=== PATIENT | male | born 1980 | race Caucasian/White ===

== ENCOUNTER 2017-02-26 09:27 | Emergency (ER) | payer BC ==
--- NOTE | 2017-02-26 09:41 | EDM.PDOC ---
ED HPI GENERAL MEDICAL PROBLEM - General Chief Complaint: ENT Problem Stated Complaint: FACE SWELLING Time Seen by Provider: 02/26/17 09:38 Source of Information: Reports: Patient - History of Present Illness INITIAL COMMENTS - FREE TEXT/NARRATIVE: HISTORY AND PHYSICAL: History of present illness: [] [facility] has been treated for a dental abscess over the last week with Augmentin Significant left-sided swelling no fever nausea vomiting chills sweats no drooling maintains his own airway Review of systems: As per history of present illness and below otherwise all systems reviewed and negative. Past medical history: As per history of present illness and as reviewed below otherwise noncontributory. Surgical history: As per history of present illness and as reviewed below otherwise noncontributory. Social history: No reported history of drug or alcohol abuse. Family history: As per history of present illness and as reviewed below otherwise noncontributory. Physical exam: HEENT: Atraumatic, normocephalic, pupils reactive, negative for conjunctival pallor or scleral icterus, mucous membranes moist, throat clear, neck supple, nontender, trachea midline. Lungs: Clear to auscultation, breath sounds equal bilaterally, chest nontender. Heart: S1S2, regular, negative for clicks, rubs, or JVD. Abdomen: Soft, nondistended, nontender. Negative for masses or hepatosplenomegaly. Negative for costovertebral tenderness. Pelvis: Stable nontender. Genitourinary: Deferred. Rectal: Deferred. Extremities: Atraumatic, negative for cords or calf pain. Neurovascular unremarkable. Neuro: Awake, alert, oriented. Cranial nerves II through XII unremarkable. Cerebellum unremarkable. Motor and sensory unremarkable throughout. Exam nonfocal. Diagnostics: [] CT soft tissue neck Lab as below Therapeutics: [] Liter normal saline bolus 10 units regular insulin Clindamycin 300 mg IV Decadron 8 mg IV Patient discussed with Dr. ROBY mckeon, oral surgeon will see the patient at 3 PM in his office for continued management Impression: [] Dental abscess/submandibular abscess Hyperglycemia Definitive disposition and diagnosis as appropriate pending reevaluation and review of above. Throat Pain Score (Numeric/FACES): 9 - Related Data Allergies Allergy/AdvReac Type Severity Reaction Status Date / Time No Known Allergies Allergy Verified 02/26/17 09:41 Home Meds: Home Meds Amoxicillin/Clavulanate K [Augmentin 875 MG/125 MG] 0 tab PO ASDIRECTED [History] Another Antibiotic 0 mg PO ASDIRECTED 02/26/17 [History] Social & Family History - Tobacco Use Smoking Status *Q: Current Every Day Smoker Years of Tobacco use: 20 - Alcohol Use Days Per Week of Alcohol Use: 1 Number of Drinks Per Day: 2 Total Drinks Per Week: 2 - Recreational Drug Use Recreational Drug Use: No ED ROS GENERAL - Review of Systems Review Of Systems: ROS reveals no pertinent complaints other than HPI. ED EXAM, GENERAL - Physical Exam Exam: See Below Course - Vital Signs Last Recorded V/S: Last Vital Signs Temp 36.7 C 02/26/17 09:42 Pulse 122 H 02/26/17 10:50 Resp 18 02/26/17 10:50 BP 144/85 H 02/26/17 10:50 Pulse Ox 98 02/26/17 10:50 - Orders/Labs/Meds Orders: Active Orders 24 hr Category Date Time Status EKG Documentation Completion [RC] STAT Care 02/26/17 11:18 Active Sodium Chloride 0.9% [Normal Saline] 1,000 ml Med 02/26/17 09:45 Active IV STAT Medication Orders Sodium Chloride (Normal Saline) 1,000 mls @ 125 mls/hr IV STAT SELVIN Last Admin: 02/26/17 09:46 Dose: 125 mls/hr Labs: Laboratory Tests 02/26/17 02/26/17 02/26/17 Range/Units 09:43 09:43 11:14 WBC 27.24 H (4.0-11.0) K/uL RBC 5.00 (4.50-5.90) M/uL Hgb 16.2 (13.0-17.0) g/dL Hct 47.3 (38.0-50.0) % MCV 94.6 (80.0-98.0) fL MCH 32.4 H (27.0-32.0) pg MCHC 34.2 (31.0-37.0) g/dL RDW Std Deviation 43.0 (28.0-62.0) fl RDW Coeff of Oliverio 13 (11.0-15.0) % Plt Count 243 (150-400) K/uL MPV 10.70 (7.40-12.00) fL Add Manual Diff YES Neutrophils % (Manual) 78 (48.0-80.0) % Band Neutrophils % 17 % Lymphocytes % (Manual) 3 L (16.0-40.0) % Monocytes % (Manual) 2 (0.0-15.0) % Nucleated RBC % 0.0 /100WBC Absolute Seg Neuts 21.2 Band Neutrophils # 4.6 Lymphocytes # (Manual) 0.8 Monocytes # (Manual) 0.5 Nucleated RBCs # 0 K/uL Sodium 134 L (136-146) mmol/L Potassium 5.0 (3.5-5.1) mmol/L Chloride 101 (98-110) mmol/L Carbon Dioxide 10 L (21-31) mmol/L BUN 15 (6.0-23.0) mg/dL Creatinine 1.3 (0.6-1.5) mg/dL Est Cr Clr Drug Dosing 78.56 mL/min Estimated GFR (MDRD) > 60.0 ml/min Glucose 405 H (60-110) mg/dL POC Glucose 308 H (60-110) mg/dL Calcium 10.1 (8.8-10.8) mg/dL Total Bilirubin 0.6 (0.1-1.5) mg/dL AST 11 (5-40) IU/L ALT 17 (8-54) IU/L Alkaline Phosphatase 116 (40-150) Total Protein 8.2 H (6.0-8.0) g/dL Albumin 4.4 (3.5-5.0) g/dL Globulin 3.8 H (2.0-3.5) g/dL Albumin/Globulin Ratio 1.2 L (1.3-2.8) Meds: Medications Generic Name Dose Route Start Last Admin Trade Name Freq PRN Reason Stop Dose Admin Sodium Chloride 1,000 mls @ 125 mls/hr 02/26/17 09:45 02/26/17 09:46 Normal Saline IV 125 mls/hr STAT SELVIN Administration Discontinued Medications Generic Name Dose Route Start Last Admin Trade Name Freq PRN Reason Stop Dose Admin Dexamethasone 8 mg 02/26/17 11:50 Dexamethasone IVPUSH 02/26/17 11:51 ONETIME ONE Clindamycin Phosphate 300 mg/ 52 mls @ 100 mls/hr 02/26/17 11:16 02/26/17 11: 32 Sodium Chloride IV 05/24/17 11:47 100 mls/hr ONETIME ONE Administration Insulin Human Regular 5 unit 02/26/17 10:38 02/26/17 10:44 Novolin R IVPUSH 02/26/17 10:39 5 units ONETIME ONE Administration Protocol Insulin Human Regular 5 unit 02/26/17 11:16 02/26/17 11:23 Novolin R IVPUSH 02/26/17 11:17 5 units ONETIME ONE Administration Protocol Iopamidol 80 ml 02/26/17 10:06 02/26/17 10:07 Isovue Multipack-370 (76%) IVPUSH 02/26/17 10:07 80 ml ONETIME STA Administration Ondansetron HCl 8 mg 02/26/17 09:59 02/26/17 10:40 Zofran IVPUSH 02/26/17 10:00 8 mg ONETIME ONE Administration Departure - Departure Time of Disposition: 12:00 Disposition: DC/Tfer to Other 70 Condition: fair Clinical Impression: Dental abscess - Discharge Information Forms: ED Department Discharge Additional Instructions: Followup with Dr. Aleksandr Barrios maxillofacial and oral surgeon [facility] [facility] [place] [address] Phone number [phone] The case has been discussed with the surgeon he will see you at 3 PM at his office - My Orders Last 24 Hours: My Active Orders 02/26/17 09:45 Sodium Chloride 0.9% [Normal Saline] 1,000 ml IV STAT 02/26/17 11:18 EKG Documentation Completion [RC] STAT - Assessment/Plan Last 24 Hours: My Active Orders 02/26/17 09:45 Sodium Chloride 0.9% [Normal Saline] 1,000 ml IV STAT 02/26/17 11:18 EKG Documentation Completion [RC] STAT
[2017-02-26] MEDS ORDERED: Sodium Chloride 0.9% 1,000 ML IV SCH (09:45)
[2017-02-26] MEDS ORDERED: Ondansetron 4 MG/2 ML SDV IVPUSH ONE (09:59)
[2017-02-26] MEDS ORDERED: Iopamidol 755 MG/ML 500 ML Multipack Bottle IVPUSH STA (10:06)
[2017-02-26 10:23] LABS: CHLORIDE,CL 101 mmol/L (98-110); SODIUM,NA 134 mmol/L (136-146)
[2017-02-26] MEDS ORDERED: Insulin Regular, Human 100 Units/ML 10 ML Vial IVPUSH ONE ×3 (10:38→12:18)
--- NOTE | 2017-02-26 11:42 | CT ---
EXAMINATION: CT soft tissue neck with contrast HISTORY: Pain COMPARISON: None TECHNIQUE: Axial CT images obtained through the neck following the administration of 80 mL of Isovue -370. Coronal and sagittal reconstructions obtained. FINDINGS: There is a 3.8 x 2.2 cm submandibular abscess noted on the left. This likely originates fr om a periapical abscess involving the left anterior mandibular molar. There is cortical breakthrough at this region. There is mass effect on the underlying oropharynx and hypopharynx. There are a few mildly prominent level 2 lymph nodes noted, likely reactive. The oropharyngeal and nasopharyngeal mu cosal structures appear symmetric. There is a trace edema within the retropharyngeal soft tissues. T he parotid and submandibular glands are symmetric. The thyroid appears normal. Soft tissue stranding extends along the left aspect of the neck. No significant subcutaneous air outside of the abscess. Mucosal thickening is noted within the ethmoid air cells. The mastoid air cells are clear. The visua lized intracranial compartments appear normal. The lung apices are clear. IMPRESSION: 1. There is a 3.8 x 2.2 cm submandibular abscess likely extension from a left mandibular molar peria pical lucency with cortical breakthrough. 2. Mass effect on the left aspect of the oropharynx is noted. 3. Reactive cervical chain lymph nodes. 4. Trace retropharyngeal edema.
[2017-02-26] MEDS ORDERED: Dexamethasone 4 MG/ML SDV IVPUSH ONE (11:50)
[2017-02-26] MEDS ORDERED: Dexamethasone 10 MG/ML SDV ONE (11:56)
[2017-02-26] MEDS ORDERED: diphenhydrAMINE 50 MG/ML SDV IVPUSH ONE (12:18)
[2017-02-26] MEDS ORDERED: Morphine 10 MG/ML Syringe IV ONE (12:18)
[2017-02-26 13:44] VITALS: BP 135/80
== END 2017-02-26 13:40 | disposition other institution (70) ==
LOC: MW.ED 09:27
DX: K04.7 Periapical abscess without sinus (principal); Z79.899 Other long term (current) drug therapy; F17.200 Nicotine dependence, unspecified, uncomplicated
CPT/HCPCS: 70491; 80053; 82962; 85025; 93005; 96361; 96365; 96375; 96376; 99284; J1100; J1200; J2270; J2405; J7040; J7050; Q9967; J1815-GY

== ENCOUNTER 2017-02-27 15:51 | Inpatient (IN) | payer BC, OTHER ==
[2017-02-27] MEDS ORDERED: Ketorolac 30 MG/ML SDV IVPUSH ONE (15:56)
[2017-02-27] MEDS ORDERED: Sodium Chloride 0.9% 1,000 ML IV ONE ×2 (15:56→17:52)
[2017-02-27] MEDS ORDERED: Ondansetron 4 MG/2 ML SDV IVPUSH ONE (15:56)
[2017-02-27] MEDS ORDERED: cefTRIAXone 2 GM in Premix Bag 1 BAG IV ONE (16:16)
--- NOTE | 2017-02-27 16:16 | EDM.PDOC ---
ED HPI GENERAL MEDICAL PROBLEM - General Chief Complaint: ENT Problem Stated Complaint: INFECTION Time Seen by Provider: 02/27/17 16:00 Source of Information: Reports: Patient History Limitations: Reports: No Limitations - History of Present Illness INITIAL COMMENTS - FREE TEXT/NARRATIVE: History of present illness: [36 year old male presenting to the ED secondary to referral from maxofacial surgeon. Patient has had 2 molars removed and significant amounts of infection ( approximately 30-40 cc) per surgeon.] Review of systems: As per history of present illness and below otherwise all systems reviewed and negative. Past medical history: As per history of present illness and as reviewed below otherwise noncontributory. Surgical history: As per history of present illness and as reviewed below otherwise noncontributory. Social history: No reported history of drug or alcohol abuse. Family history: As per history of present illness and as reviewed below otherwise noncontributory. Physical exam: HEENT: Atraumatic, normocephalic, pupils reactive, negative for conjunctival pallor or scleral icterus, mucous membranes moist, internal oral swelling noted as well as some mild amount of swelling and tenderness to the lower jaw and neck region, trachea midline. Patient is able to verbalize, is not drooling , or unable to breathe without difficulty. Lungs: Clear to auscultation, breath sounds equal bilaterally, chest nontender. Heart: S1S2, regular, negative for clicks, rubs, or JVD. Abdomen: Soft, nondistended, nontender. Negative for masses or hepatosplenomegaly. Negative for costovertebral tenderness. Pelvis: Stable nontender. Genitourinary: Deferred. Rectal: Deferred. Extremities: Atraumatic, negative for cords or calf pain. Neurovascular unremarkable. Neuro: Awake, alert, oriented. Cranial nerves II through XII unremarkable. Cerebellum unremarkable. Motor and sensory unremarkable throughout. Exam nonfocal. Patient continues to have swelling and significant amount of managing his oral secretions. Patient indicates that they are improved by continuous spitting of draining pus as well as some amount of old external compress. Patient is unable to consistently swallow pills and in light of new diagnosis of diabetes and uncontrolled blood sugars, as well as recent treatment by maxillofacial surgeon it is in his best interest for admission and more aggressive therapy. Diagnostics: [ CBC, CMP ] Therapeutics: [ IV fluid 2 g Rocephin ] Impression: [Leukocytosis, oral abscess, new-onset diabetes, hyperglycemia] Plan: [Admit] Definitive disposition and diagnosis as appropriate pending reevaluation and review of above. Throat Pain Score (Numeric/FACES): 8 - Related Data Allergies Allergy/AdvReac Type Severity Reaction Status Date / Time No Known Allergies Allergy Verified 02/27/17 16:07 Home Meds: Home Meds Amoxicillin/Clavulanate K [Augmentin 875 MG/125 MG] 0 tab PO ASDIRECTED [History] metroNIDAZOLE [Flagyl] 375 mg PO ASDIRECTED 02/27/17 [History] Past Medical History - Past Health History Medical/Surgical History: Denies Medical/Surgical History Social & Family History - Family History Family Medical History: Noncontributory - Tobacco Use Smoking Status *Q: Current Every Day Smoker Years of Tobacco use: 20 Packs/Tins Daily: 1 - Alcohol Use Days Per Week of Alcohol Use: 1 Number of Drinks Per Day: 2 Total Drinks Per Week: 2 - Recreational Drug Use Recreational Drug Use: No ED ROS GENERAL - Review of Systems Review Of Systems: See Below (See history of present illness) ED EXAM, GENERAL - Physical Exam Exam: See Below (See history of present illness) Course - Vital Signs Last Recorded V/S: Last Vital Signs Temp 37.4 C 02/27/17 19:02 Pulse 113 H 02/27/17 19:02 Resp 19 02/27/17 19:02 BP 127/78 02/27/17 19:02 Pulse Ox 100 02/27/17 19:02 - Orders/Labs/Meds Orders: Active Orders 24 hr Category Date Time Status CULTURE BLOOD [BC] Stat Lab 02/27/17 16:25 Received CULTURE BLOOD [BC] Stat Lab 02/27/17 16:44 Received Blood Culture x2 Reflex Set [OM.PC] Stat Oth 02/27/17 16:18 Ordered Labs: Laboratory Tests 02/27/17 02/27/17 02/27/17 Range/Units 16:25 16:25 16:25 WBC 21.76 H (4.0-11.0) K/uL RBC 4.77 (4.50-5.90) M/uL Hgb 15.3 (13.0-17.0) g/dL Hct 44.5 (38.0-50.0) % MCV 93.3 (80.0-98.0) fL MCH 32.1 H (27.0-32.0) pg MCHC 34.4 (31.0-37.0) g/dL RDW Std Deviation 42.8 (28.0-62.0) fl RDW Coeff of Oliverio 13 (11.0-15.0) % Plt Count 242 (150-400) K/uL MPV 10.50 (7.40-12.00) fL Add Manual Diff YES Neutrophils % (Manual) 69 (48.0-80.0) % Band Neutrophils % 18 % Lymphocytes % (Manual) 10 L (16.0-40.0) % Monocytes % (Manual) 3 (0.0-15.0) % Nucleated RBC % 0.0 /100WBC Absolute Seg Neuts 15.0 Band Neutrophils # 3.9 Lymphocytes # (Manual) 2.2 Monocytes # (Manual) 0.7 Nucleated RBCs # 0 K/uL Lactate 1.6 (0.20-2.00) mmol/L Sodium 134 L (136-146) mmol/L Potassium 4.9 (3.5-5.1) mmol/L Chloride 103 (98-110) mmol/L Carbon Dioxide 13 L (21-31) mmol/L BUN 23 (6.0-23.0) mg/dL Creatinine 1.1 (0.6-1.5) mg/dL Est Cr Clr Drug Dosing 92.84 mL/min Estimated GFR (MDRD) > 60.0 ml/min Glucose 350 H (60-110) mg/dL Hemoglobin A1c (0.0-6.0) % Calcium 9.9 (8.8-10.8) mg/dL Total Bilirubin 0.4 (0.1-1.5) mg/dL AST 11 (5-40) IU/L ALT 15 (8-54) IU/L Alkaline Phosphatase 109 (40-150) Total Protein 7.7 (6.0-8.0) g/dL Albumin 3.9 (3.5-5.0) g/dL Globulin 3.8 H (2.0-3.5) g/dL Albumin/Globulin Ratio 1.0 L (1.3-2.8) 05/25/17 Range/Units 16:25 WBC (4.0-11.0) K/uL RBC (4.50-5.90) M/uL Hgb (13.0-17.0) g/dL Hct (38.0-50.0) % MCV (80.0-98.0) fL MCH (27.0-32.0) pg MCHC (31.0-37.0) g/dL RDW Std Deviation (28.0-62.0) fl RDW Coeff of Oliverio (11.0-15.0) % Plt Count (150-400) K/uL MPV (7.40-12.00) fL Add Manual Diff Neutrophils % (Manual) (48.0-80.0) % Band Neutrophils % % Lymphocytes % (Manual) (16.0-40.0) % Monocytes % (Manual) (0.0-15.0) % Nucleated RBC % /100WBC Absolute Seg Neuts Band Neutrophils # Lymphocytes # (Manual) Monocytes # (Manual) Nucleated RBCs # K/uL Lactate (0.20-2.00) mmol/L Sodium (136-146) mmol/L Potassium (3.5-5.1) mmol/L Chloride (98-110) mmol/L Carbon Dioxide (21-31) mmol/L BUN (6.0-23.0) mg/dL Creatinine (0.6-1.5) mg/dL Est Cr Clr Drug Dosing mL/min Estimated GFR (MDRD) ml/min Glucose (60-110) mg/dL Hemoglobin A1c 12.5 H (0.0-6.0) % Calcium (8.8-10.8) mg/dL Total Bilirubin (0.1-1.5) mg/dL AST (5-40) IU/L ALT (8-54) IU/L Alkaline Phosphatase (40-150) Total Protein (6.0-8.0) g/dL Albumin (3.5-5.0) g/dL Globulin (2.0-3.5) g/dL Albumin/Globulin Ratio (1.3-2.8) Meds: Medications Discontinued Medications Generic Name Dose Route Start Last Admin Trade Name Freq PRN Reason Stop Dose Admin Sodium Chloride 1,000 mls @ 999 mls/hr 02/27/17 15:56 02/27/17 16:29 Normal Saline IV 02/27/17 16:56 999 mls/hr STAT ONE Administration Ceftriaxone Sodium/Dextrose 2 50 mls @ 100 mls/hr 02/27/17 16:16 02/27/17 16: 57 gm/ Premix IV 02/27/17 16:45 100 mls/hr ONETIME ONE Administration Metronidazole 500 mg/ Premix 100 mls @ 100 mls/hr 02/27/17 17:47 02/27/17 18: 18 IV 02/27/17 18:46 100 mls/hr ONETIME ONE Administration Sodium Chloride 1,000 mls @ 999 mls/hr 02/27/17 17:52 02/27/17 18:18 Normal Saline IV 02/27/17 18:52 999 mls/hr .Bolus ONE Administration Ketorolac Tromethamine 30 mg 02/27/17 15:56 02/27/17 16:29 Toradol IVPUSH 02/27/17 15:57 30 mg ONETIME ONE Administration Ondansetron HCl 4 mg 02/27/17 15:56 02/27/17 16:30 Zofran IVPUSH 02/27/17 15:57 4 mg ONETIME ONE Administration Departure - Departure Time of Disposition: 19:30 Disposition: Admitted As Inpatient 66 Condition: good Clinical Impression: Dental abscess - Discharge Information - My Orders Last 24 Hours: My Active Orders 02/27/17 16:18 Blood Culture x2 Reflex Set [OM.PC] Stat 02/27/17 16:25 CULTURE BLOOD [BC] Stat 02/27/17 16:44 CULTURE BLOOD [BC] Stat - Assessment/Plan Last 24 Hours: My Active Orders 02/27/17 16:18 Blood Culture x2 Reflex Set [OM.PC] Stat 02/27/17 16:25 CULTURE BLOOD [BC] Stat 02/27/17 16:44 CULTURE BLOOD [BC] Stat
[2017-02-27 17:09] LABS: CHLORIDE,CL 103 mmol/L (98-110); SODIUM,NA 134 mmol/L (136-146)
[2017-02-27] MEDS ORDERED: metroNIDAZOLE/Normal Saline 500 MG in Premix Bag 1 BAG IV ONE (17:47)
[2017-02-27] MEDS ORDERED: Ondansetron 4 MG/2 ML SDV IVPUSH PRN (21:03)
[2017-02-27] MEDS ORDERED: oxyCODONE 5 MG Tab PO PRN (21:03)
--- NOTE | 2017-02-27 21:11 | PCM.HP ---
H&P History of Present Illness - General Admit Problem/Dx: Admission Diagnosis/Problem Admission Diagnosis/Problem Dental abscess - History of Present Illness Initial Comments - Free Text/Narative: 36 yo male who yesterday had two molar teeth extracted by oral surgeon due to left submandibular abscess. He was treated with augmentin, flagyl and prednisone perioperatively. On follow up visit to the oral surgeon today he still had significant submandibular swelling and pain and was having difficulty swallowing pills. He was referred to the ER for IV antibiotic therapy. Patient is able to manage his oral secretions but does have pain with swallowing. Throat Pain Score (Numeric/FACES): 0 - Related Data Allergies/Adverse Reactions: Allergies Allergy/AdvReac Type Severity Reaction Status Date / Time No Known Allergies Allergy Verified 02/27/17 16:07 Home Medications: Home Meds Insulin Regular, Human [NovoLIN R] 100 unit IV TITRATE vial 02/28/17 [Rx] Morphine 2 mg IVPUSH Q2H PRN #0 syringe 02/28/17 [Rx] Sodium Chloride 0.9% [Normal Saline] 200 ml IV ASDIRECTED #0 bag 02/28/17 [Rx] Vancomycin 1 gm IV Q8H sdv 02/28/17 [Rx] Vancomycin 250 mg IV Q8H sdv 02/28/17 [Rx] Vancomycin Pharmacy to Dose [Pharmacy to Dose - Vancomycin] 1 dose .XX ASDIRECTED each 02/28/17 [Rx] Past Medical History - Past Health History Medical/Surgical History: Denies Medical/Surgical History HEENT History: Reports: Retinal Detachment Gastrointestinal History: Reports: Other (See Below) Other Gastrointestinal History: Ulcer - Infectious Disease History Infectious Disease History: Reports: Chicken Pox - Past Surgical History HEENT Surgical History: Reports: Detached Retina, Oral Surgery Other Musculoskeletal Surgeries/Procedures:: Wrist surgery Social & Family History - Family History Family Medical History: Noncontributory - Tobacco Use Smoking Status *Q: Current Every Day Smoker Years of Tobacco use: 20 Packs/Tins Daily: 0.5 Used Tobacco, but Quit: Yes Month Tobacco Last Used: 02/2017 Second Hand Smoke Exposure: Yes - Caffeine Use Caffeine Use: Reports: Coffee, Energy Drinks, Soda, Tea Caffeine Use Comment: 2-3 - Alcohol Use Days Per Week of Alcohol Use: 1 Number of Drinks Per Day: 2 Total Drinks Per Week: 2 Date of Last Drink: 02/22/17 - Recreational Drug Use Recreational Drug Use: Yes Drug Use in Last 12 Months: No Recreational Drug Type: Reports: Marijuana/Hashish H&P Review of Systems - Review of Systems: Review Of Systems: See Below General: Reports: No Symptoms HEENT: Reports: Sore Throat Pulmonary: Reports: No Symptoms Cardiovascular: Reports: No Symptoms Gastrointestinal: Reports: No Symptoms Genitourinary: Reports: No Symptoms Musculoskeletal: Reports: No Symptoms Skin: Reports: No Symptoms Psychiatric: Reports: No Symptoms Neurological: Reports: No Symptoms Hematologic/Lymphatic: Reports: No Symptoms Immunologic: Reports: No Symptoms Exam - Exam Exam: See Below - Vital Signs Vital Signs: Last Vital Signs Temp 37.7 C 02/27/17 20:20 Pulse 126 H 02/27/17 20:20 Resp 22 H 02/27/17 20:20 BP 124/71 02/27/17 20:20 Pulse Ox 100 02/27/17 20:20 Weight: 81 kg - Exam General: Alert, Oriented, 4 HEENT: Posterior Pharynx Clear Neck: Lymphadenopathy (submandibular lympadenopathy under chin.) Cardiovascular: Regular Rate, Regular Rhythm Abdomen: Soft. No: Tenderness Extremities: Normal Inspection Skin: Warm, Dry, Intact - Patient Data Result Diagrams: 02/28/17 04:19 02/28/17 13:05 *Q Meaningful Use (ADM) - VTE *Q VTE Criteria *Q: - Stroke *Q Stroke Criteria *Q: - AMI *Q AMI Criteria *Q: Problem List Initiated/Reviewed/Updated: Yes Orders Last 24hrs: Active Orders 24 hr Category Date Time Status Antiembolic Devices [RC] PER UNIT ROUTINE Care 02/27/17 21:04 Ordered Blood Glucose Check, Bedside [RC] Q6HR Care 02/27/17 21:03 Ordered Intake and Output [RC] QSHIFT Care 02/27/17 21:03 Ordered Oxygen Therapy [RC] PRN Care 02/27/17 21:03 Ordered Up ad Lana [RC] ASDIRECTED Care 02/27/17 21:03 Ordered VTE/DVT Education [RC] PER UNIT ROUTINE Care 02/27/17 21:03 Ordered Vital Signs [RC] Q4H Care 02/27/17 21:03 Ordered [employer] Diet [DIET] Diet 02/27/17 Breakfast Ordered Clear Liquid Diet [DIET] Diet 02/27/17 Breakfast Ordered BASIC METABOLIC PANEL,BMP [CHEM] AM Lab 02/28/17 05:11 Ordered BASIC METABOLIC PANEL,BMP [CHEM] AM Lab 03/01/17 05:11 Ordered CBC WITH AUTO DIFF [HEME] AM Lab 02/28/17 05:11 Ordered CBC WITH AUTO DIFF [HEME] AM Lab 03/01/17 05:11 Ordered Insulin Aspart [NovoLOG] Med 02/27/17 21:15 Ordered See Protocol SUBCUT Q6H Morphine Med 02/27/17 21:03 Ordered 2 mg IVPUSH Q3H PRN Ondansetron [Zofran] Med 02/27/17 21:03 Ordered 4 mg IVPUSH Q4H PRN Piperacillin/Tazobactam [Piperacil-Tazobact] 3.375 gm Med 02/27/17 21:15 Ordered Sodium Chloride 0.9% [Normal Saline] 50 ml IV Q6H Vancomycin Pharmacy to Dose [Pharmacy to Dose - Med 02/27/17 21:15 Ordered Vancomycin] 1 dose .XX ASDIRECTED oxyCODONE Med 02/27/17 21:03 Ordered 5 mg PO Q4H PRN Sequential Compression Device [OM.PC] Per Unit Routine Oth 02/27/17 21:03 Ordered Resuscitation Status Routine Resus Stat 02/27/17 21:03 Ordered Medication Orders Piperacillin Sod/Tazobactam (Sod 3.375 gm/ Sodium Chloride) 50 mls @ 100 mls/ hr IV Q6H [facility] Insulin Aspart (Novolog) 0 unit SUBCUT Q6H SELVIN PRN Reason: Protocol Morphine Sulfate (Morphine) 2 mg IVPUSH Q3H PRN PRN Reason: Pain (severe 7-10) Stop: 02/28/17 21:04 Ondansetron HCl (Zofran) 4 mg IVPUSH Q4H PRN PRN Reason: Nausea Oxycodone HCl (Oxycodone) 5 mg PO Q4H PRN PRN Reason: Pain (moderate 4-6) Vancomycin HCl (Pharmacy To Dose - Vancomycin) 1 dose .XX ASDIRECTED [facility] Assessment/Plan Comment:: 36 yo male admitted with submandibular abscess s/p molar extraction who has failed outpatient antibiotic therapy. We will admit for IV antibiotic therapy with vancomycin and zosyn. Blood sugars are elevated likley exacerbated by acute infection and steroid use. We will check HgA1c and place on sliding scale insulin.
[2017-02-27] MEDS: Piperacillin/Tazobactam 3.375 GM in Sodium Chloride 0.9% 50 ML IV SCH (21:56)
[2017-02-27] MEDS ORDERED: Vancomycin 1.25 GM in Sodium Chloride 0.9% 500 ML IV SCH (22:00)
[2017-02-27] MEDS: Insulin Aspart 100 Units/ML 3 ML Pen SUBCUT SCH (22:02)
[2017-02-27] MEDS: Sodium Chloride 0.9% 1,000 ML IV SCH (22:04)
[2017-02-27] MEDS: Morphine 2 MG/ML Syringe IVPUSH PRN (22:45)
[2017-02-27] MEDS: Vancomycin 1 GM, Vancomycin 250 MG in Sodium Chloride 0.9% 500 ML IV SCH (22:51)
[2017-02-28] MEDS: Piperacillin/Tazobactam 3.375 GM in Sodium Chloride 0.9% 50 ML IV SCH ×3 (03:38→14:32)
[2017-02-28] MEDS: Insulin Aspart 100 Units/ML 3 ML Pen SUBCUT SCH ×2 (03:44→09:19)
[2017-02-28] MEDS: Morphine 2 MG/ML Syringe IVPUSH PRN ×2 (03:54→08:59)
[2017-02-28 05:22] LABS: CHLORIDE,CL 109 mmol/L (98-110); SODIUM,NA 138 mmol/L (136-146)
[2017-02-28] MEDS: Vancomycin 1 GM, Vancomycin 250 MG in Sodium Chloride 0.9% 500 ML IV SCH ×2 (05:26→13:00)
--- NOTE | 2017-02-28 08:31 | PCM.PN ---
- General Info Date of Service: 02/28/17 Admission Dx/Problem (Free Text): Admission Diagnosis/Problem Admission Diagnosis/Problem Dental abscess Subjective Update: Reports unable to swallow his own secretions, has suction yankauer in hand. Swallowing induces 10/10 pain has pain to L ear and lateral neck. Functional Status: Reports: pain controlled - Review of Systems General: Reports: Malaise HEENT: Reports: ear pain (L ear pain), sore throat, other (unable to swallow secretions) Pulmonary: Reports: no symptoms. Denies: shortness of breath, cough, sputum Cardiovascular: Reports: No Symptoms. Denies: Chest Pain, Palpitations, Edema Gastrointestinal: Reports: No symptoms. Denies: Abdominal pain, Nausea, Vomiting Genitourinary: Reports: no symptoms Musculoskeletal: Reports: no symptoms Skin: Reports: no symptoms Neurological: Reports: No Symptoms Psychiatric: Reports: no symptoms - Patient Data Vitals - most recent: Last Vital Signs Temp 98.5 F 02/28/17 08:00 Pulse 108 H 02/28/17 08:00 Resp 22 H 02/28/17 08:00 BP 143/74 H 02/28/17 08:00 Pulse Ox 97 02/28/17 08:00 Weight - most recent: 81 kg I&O - last 24 hours: Intake & Output 02/27/17 02/28/17 02/28/17 22:59 06:59 14:59 Intake Total 1050 1150 500 Output Total 425 Balance 1050 725 500 Lab Results last 24 hrs: Laboratory Results - last 24 hr 02/27/17 02/28/17 02/28/17 Range/Units 21:56 03:41 04:19 WBC 18.03 H (4.0-11.0) K/uL RBC 4.08 L (4.50-5.90) M/uL Hgb 12.6 L (13.0-17.0) g/dL Hct 38.2 (38.0-50.0) % MCV 93.6 (80.0-98.0) fL MCH 30.9 (27.0-32.0) pg MCHC 33.0 (31.0-37.0) g/dL RDW Std Deviation 43.1 (28.0-62.0) fl RDW Coeff of Oliverio 13 (11.0-15.0) % Plt Count 237 (150-400) K/uL MPV 10.50 (7.40-12.00) fL Add Manual Diff YES Neutrophils % (Manual) 67 (48.0-80.0) % Band Neutrophils % 13 % Lymphocytes % (Manual) 9 L (16.0-40.0) % Monocytes % (Manual) 11 (0.0-15.0) % Nucleated RBC % 0.0 /100WBC Absolute Seg Neuts 12.1 Band Neutrophils # 2.3 Lymphocytes # (Manual) 1.6 Monocytes # (Manual) 2.0 Nucleated RBCs # 0 K/uL Sodium (136-146) mmol/L Potassium (3.5-5.1) mmol/L Chloride (98-110) mmol/L Carbon Dioxide (21-31) mmol/L BUN (6.0-23.0) mg/dL Creatinine (0.6-1.5) mg/dL Est Cr Clr Drug Dosing mL/min Estimated GFR (MDRD) ml/min Glucose (60-110) mg/dL POC Glucose 246 H 219 H (60-110) mg/dL Hemoglobin A1c (0.0-6.0) % Calcium (8.8-10.8) mg/dL 02/28/17 02/28/17 Range/Units 04:19 04:19 WBC (4.0-11.0) K/uL RBC (4.50-5.90) M/uL Hgb (13.0-17.0) g/dL Hct (38.0-50.0) % MCV (80.0-98.0) fL MCH (27.0-32.0) pg MCHC (31.0-37.0) g/dL RDW Std Deviation (28.0-62.0) fl RDW Coeff of Oliverio (11.0-15.0) % Plt Count (150-400) K/uL MPV (7.40-12.00) fL Add Manual Diff Neutrophils % (Manual) (48.0-80.0) % Band Neutrophils % % Lymphocytes % (Manual) (16.0-40.0) % Monocytes % (Manual) (0.0-15.0) % Nucleated RBC % /100WBC Absolute Seg Neuts Band Neutrophils # Lymphocytes # (Manual) Monocytes # (Manual) Nucleated RBCs # K/uL Sodium 138 (136-146) mmol/L Potassium 4.2 (3.5-5.1) mmol/L Chloride 109 (98-110) mmol/L Carbon Dioxide 11 L (21-31) mmol/L BUN 18 (6.0-23.0) mg/dL Creatinine 0.8 (0.6-1.5) mg/dL Est Cr Clr Drug Dosing 131.81 mL/min Estimated GFR (MDRD) > 60.0 ml/min Glucose 237 H (60-110) mg/dL POC Glucose (60-110) mg/dL Hemoglobin A1c 12.5 H (0.0-6.0) % Calcium 7.8 L (8.8-10.8) mg/dL Med Orders - Current: Current Medications Piperacillin Sod/Tazobactam (Sod 3.375 gm/ Sodium Chloride) 50 mls @ 100 mls/ hr IV Q6H [facility] Last Admin: 02/28/17 03:38 Dose: 100 mls/hr Sodium Chloride (Normal Saline) 1,000 mls @ 150 mls/hr IV ASDIRECTED [facility] Last Admin: 02/27/17 22:04 Dose: 150 mls/hr Vancomycin HCl 1 gm/Vancomycin HCl 250 mg/ Sodium Chloride 500 mls @ 333.333 mls/hr IV Q8H [facility] Last Admin: 02/28/17 05:26 Dose: 333.333 mls/hr Insulin Aspart (Novolog) 0 unit SUBCUT Q6H [facility] PRN Reason: Protocol Last Admin: 02/28/17 03:44 Dose: 4 units Morphine Sulfate (Morphine) 2 mg IVPUSH Q3H PRN PRN Reason: Pain (severe 7-10) Stop: 02/28/17 21:04 Last Admin: 02/28/17 03:54 Dose: 2 mg Ondansetron HCl (Zofran) 4 mg IVPUSH Q4H PRN PRN Reason: Nausea Oxycodone HCl (Oxycodone) 5 mg PO Q4H PRN PRN Reason: Pain (moderate 4-6) Vancomycin HCl (Pharmacy To Dose - Vancomycin) 1 dose .XX ASDIRECTED [facility] Discontinued Medications Sodium Chloride (Normal Saline) 1,000 mls @ 999 mls/hr IV STAT ONE Stop: 02/27/17 16:56 Last Admin: 02/27/17 16:29 Dose: 999 mls/hr Ceftriaxone Sodium/Dextrose 2 (gm/ Premix) 50 mls @ 100 mls/hr IV ONETIME ONE Stop: 02/27/17 16:45 Last Admin: 02/27/17 16:57 Dose: 100 mls/hr Metronidazole 500 mg/ Premix 100 mls @ 100 mls/hr IV ONETIME ONE Stop: 02/27/17 18:46 Last Admin: 02/27/17 18:18 Dose: 100 mls/hr Sodium Chloride (Normal Saline) 1,000 mls @ 999 mls/hr IV .Bolus ONE Stop: 02/27/17 18:52 Last Admin: 02/27/17 18:18 Dose: 999 mls/hr Vancomycin HCl 1.25 gm/ Sodium (Chloride) 500 mls @ 333.333 mls/hr IV Q8H [facility] Last Admin: 02/27/17 23:02 Dose: Not Given Ketorolac Tromethamine (Toradol) 30 mg IVPUSH ONETIME ONE Stop: 02/27/17 15:57 Last Admin: 02/27/17 16:29 Dose: 30 mg Ondansetron HCl (Zofran) 4 mg IVPUSH ONETIME ONE Stop: 02/27/17 15:57 Last Admin: 02/27/17 16:30 Dose: 4 mg - Exam General: alert, oriented, cooperative, no acute distress Neck: lymphadenopathy (L lateral neck, submandibular, moderate amount of swelling noted to L lateral neck, very tender to palpation.), other (L ear pain) Lungs: Clear to auscultation, Normal respiratory effort Cardiovascular: Regular Rhythm, Tachycardia. No: Murmurs Abdomen: bowel sounds present, soft, no tenderness, no distension Extremities: no edema, normal pulses - Problem List & Annotations (1) Dental abscess SNOMED Code(s): 803545460 Code(s): K04.7 - PERIAPICAL ABSCESS WITHOUT SINUS Status: Acute Current Visit: Yes (2) Hyperglycemia SNOMED Code(s): 00399952 Code(s): R73.9 - HYPERGLYCEMIA, UNSPECIFIED Status: Acute Current Visit: Yes - Problem List Review Problem List Initiated/Reviewed/Updated: Yes - Plan Plan:: 36 yo male admitted with submandibular abscess s/p molar extraction who has failed outpatient antibiotic therapy. 1. Submandibular abscess s/p molar extraction: Continue Vancomycin and Zosyn, slight improvement in leukocytosis. Unable to swallow own secretions without significant pain. Has suction in lap, and is clearing secretions and draining purulent drainage. tachycardia noted this am, will give NS bolus 1 L this am. Monitor closely. 2. Elevated blood sugars: HgA1c 12.5 Continue SSI Q6hr due to inability eat/ swallow VTE prophylaxis: SCDs
[2017-02-28] MEDS ORDERED: Sodium Chloride 0.9% 1,000 ML IV ONE (09:04)
[2017-02-28] MEDS ORDERED: Morphine 2 MG/ML Syringe IVPUSH PRN (09:06)
[2017-02-28] MEDS: Sodium Chloride 0.9% 1,000 ML IV SCH (11:05)
[2017-02-28] MEDS ORDERED: Iopamidol 755 MG/ML 500 ML Multipack Bottle IVPUSH STA (11:23)
--- NOTE | 2017-02-28 11:32 | CT ---
EXAMINATION: CT soft tissue neck with contrast HISTORY: Abscess COMPARISON: 23/01/2017 TECHNIQUE: Axial CT images obtained through the neck following the administration of 75 mL of Isovue -370 in the right antecubital fossa. Coronal and sagittal reconstructions obtained. FINDINGS: Again noted is a grossly unchanged left submandibular fluid collection noted measuring jeni roximately 3.3 x 2 cm. There is moderate mass effect on the oropharynx. There is however increasing fluid signal extending along the pretracheal soft tissues to the level of the clavicles. There is al so mildly increased stranding adjacent to the left carotid sheath without inferior extension into th e mediastinum. No subcutaneous air. Trace retropharyngeal edema again noted, unchanged. Reactive ap pearing cervical chain lymph nodes are again noted. The lung apices are clear. Submandibular, paroti d and thyroid glands otherwise appear unremarkable. The visualized osseous structures appear normal. Left scleral banding. IMPRESSION: 1. Stable left submandibular abscess, however there is worrisome increased fluid tracking inferiorly along the fascial planes of the anterior neck to the thoracic outlet. 2. Reactive appearing cervical chain lymph nodes are noted.
[2017-02-28] MEDS ORDERED: Sodium Chloride 0.9% 1,000 ML IV SCH (11:46)
--- NOTE | 2017-02-28 12:43 | PCM.DCSUM1 ---
Discharge Summary - Hospital Course Brief History: 36 yo male who 02/26/2017 had two molar teeth (#18 and 19) extracted by oral surgeon, Dr. Barrios, due to left submandibular abscess. He had been dealing with swelling to his left submandibular region for approximately 7- 8 days. He was treated with augmentin, flagyl and prednisone perioperatively. On follow up visit to the oral surgeon 02/27/2017 he still had significant submandibular swelling and pain and was having difficulty swallowing pills or drinking any fluids. He was referred to the ER for IV antibiotic therapy. Patient is able to manage his oral secretions but does have pain with swallowing. - Discharge Data Discharge Date: 02/28/17 Discharge Disposition: DC/Tfer to Acute Hospital 02 Condition: Serious - Discharge Diagnosis/Problem(s) (1) Dental abscess SNOMED Code(s): 390416372 ICD Code: K04.7 - PERIAPICAL ABSCESS WITHOUT SINUS Status: Acute Current Visit: Yes (2) Hyperglycemia SNOMED Code(s): 41177554 ICD Code: R73.9 - HYPERGLYCEMIA, UNSPECIFIED Status: Acute Current Visit : Yes - Discharge Plan Home Medications: Home Meds Amoxicillin/Clavulanate K [Augmentin 875 MG/125 MG] 1 tab PO ASDIRECTED [History] Chlorhexidine Gluconate [Periogard] 10 ml PO TID 02/28/17 [History] metroNIDAZOLE [Flagyl] 500 mg PO BID 02/28/17 [History] oxyCODONE HCl/Acetaminophen [oxyCODONE-Acetaminophen 5-325] 5 - 325 mg PO Q6H [History] - Discharge Summary/Plan Comment DC Time >30 min.: No Discharge Summary/Plan Comment: Discharge diagnoses: Sepsis Submandibular abscess New onset DM type 2 Eddie was admitted with submandibular abscess with leukocytosis. Airway has remained patent, but he is unable to swallow his secretions, pills or fluids secondary to extreme pain. He has suction to relieve oral secretions at bedside. He was started on broad spectrum antibiotics, Vancomycin and Zosyn upon admission. This morning he feels no better and pain is increasing. Repeat CT reveals stable left submandibular abscess, but there is now worrisome fluid tracking inferiorly along the fascial places of the anterior neck to the thoracic outlet. Leukocytosis improved to 18,000 this am. He is afebrile, with no ENT provider available at our facility currently. Due to this transfer is recommended for further evaluation, requests patient to be sent to [facility]. [facility] was contacted regarding possibility of transfer. I spoke with Dr. Patricio, hospitalist who after speaking with Dr Del Cid, ENT has accepted patient for transfer and request him to be transfer via flight to the ED and Dr. Del Cid will assess him there. Insulin gtt was initiated this morning due to concerns of DKA, small ketones noted in blood and bicarb dipped to 11. After initiation on insulin gtt, bicarb elevated to 13. pH 7.3. Will continue fluids, NS 200 for transfer and NPO status. - General Info Date of Service: 02/28/17 Admission Dx/Problem (Free Text: Admission Diagnosis/Problem Admission Diagnosis/Problem Dental abscess Functional Status: Reports: ambulating. Denies: pain controlled, tolerating diet - Review of Systems General: Reports: Malaise HEENT: Reports: sore throat, other (suctioning oral secretions and purulent drainage from mouth) Pulmonary: Reports: no symptoms. Denies: shortness of breath, cough, sputum Cardiovascular: Reports: No Symptoms. Denies: Chest Pain, Palpitations, Edema Gastrointestinal: Reports: No symptoms. Denies: Abdominal pain Genitourinary: Reports: no symptoms. Denies: dysuria, frequency, burning Musculoskeletal: Reports: no symptoms Skin: Reports: no symptoms Neurological: Reports: No Symptoms Psychiatric: Reports: no symptoms - Patient Data Vitals - Most Recent: Last Vital Signs Temp 98.9 F 02/28/17 11:57 Pulse 97 02/28/17 11:57 Resp 22 H 02/28/17 11:57 BP 133/74 02/28/17 11:57 Pulse Ox 99 02/28/17 11:57 Weight - Most Recent: 81 kg I&O - Last 24 hours: Intake & Output 02/27/17 02/28/17 02/28/17 22:59 06:59 14:59 Intake Total 1050 1150 2550 Output Total 425 Balance 2773 663 5510 Lab Results - Last 24 hrs: Laboratory Results - last 24 hr 02/27/17 02/28/17 02/28/17 Range/Units 21:56 03:41 04:19 WBC 18.03 H (4.0-11.0) K/uL RBC 4.08 L (4.50-5.90) M/uL Hgb 12.6 L (13.0-17.0) g/dL Hct 38.2 (38.0-50.0) % MCV 93.6 (80.0-98.0) fL MCH 30.9 (27.0-32.0) pg MCHC 33.0 (31.0-37.0) g/dL RDW Std Deviation 43.1 (28.0-62.0) fl RDW Coeff of Olivreio 13 (11.0-15.0) % Plt Count 237 (150-400) K/uL MPV 10.50 (7.40-12.00) fL Add Manual Diff YES Neutrophils % (Manual) 67 (48.0-80.0) % Band Neutrophils % 13 % Lymphocytes % (Manual) 9 L (16.0-40.0) % Monocytes % (Manual) 11 (0.0-15.0) % Nucleated RBC % 0.0 /100WBC Absolute Seg Neuts 12.1 Band Neutrophils # 2.3 Lymphocytes # (Manual) 1.6 Monocytes # (Manual) 2.0 Nucleated RBCs # 0 K/uL Lactate (0.20-2.00) mmol/L Sodium (136-146) mmol/L Potassium (3.5-5.1) mmol/L Chloride (98-110) mmol/L Carbon Dioxide (21-31) mmol/L BUN (6.0-23.0) mg/dL Creatinine (0.6-1.5) mg/dL Est Cr Clr Drug Dosing mL/min Estimated GFR (MDRD) ml/min Glucose (60-110) mg/dL POC Glucose 246 H 219 H (60-110) mg/dL Hemoglobin A1c (0.0-6.0) % Calcium (8.8-10.8) mg/dL Ketones (NEG) 02/28/17 02/28/17 02/28/17 Range/Units 04:19 04:19 09:18 WBC (4.0-11.0) K/uL RBC (4.50-5.90) M/uL Hgb (13.0-17.0) g/dL Hct (38.0-50.0) % MCV (80.0-98.0) fL MCH (27.0-32.0) pg MCHC (31.0-37.0) g/dL RDW Std Deviation (28.0-62.0) fl RDW Coeff of Oliverio (11.0-15.0) % Plt Count (150-400) K/uL MPV (7.40-12.00) fL Add Manual Diff Neutrophils % (Manual) (48.0-80.0) % Band Neutrophils % % Lymphocytes % (Manual) (16.0-40.0) % Monocytes % (Manual) (0.0-15.0) % Nucleated RBC % /100WBC Absolute Seg Neuts Band Neutrophils # Lymphocytes # (Manual) Monocytes # (Manual) Nucleated RBCs # K/uL Lactate (0.20-2.00) mmol/L Sodium 138 (136-146) mmol/L Potassium 4.2 (3.5-5.1) mmol/L Chloride 109 (98-110) mmol/L Carbon Dioxide 11 L (21-31) mmol/L BUN 18 (6.0-23.0) mg/dL Creatinine 0.8 (0.6-1.5) mg/dL Est Cr Clr Drug Dosing 131.81 mL/min Estimated GFR (MDRD) > 60.0 ml/min Glucose 237 H (60-110) mg/dL POC Glucose 231 H (60-110) mg/dL Hemoglobin A1c 12.5 H (0.0-6.0) % Calcium 7.8 L (8.8-10.8) mg/dL Ketones (NEG) 02/28/17 02/28/17 02/28/17 Range/Units 11:08 11:08 12:03 WBC (4.0-11.0) K/uL RBC (4.50-5.90) M/uL Hgb (13.0-17.0) g/dL Hct (38.0-50.0) % MCV (80.0-98.0) fL MCH (27.0-32.0) pg MCHC (31.0-37.0) g/dL RDW Std Deviation (28.0-62.0) fl RDW Coeff of Oliverio (11.0-15.0) % Plt Count (150-400) K/uL MPV (7.40-12.00) fL Add Manual Diff Neutrophils % (Manual) (48.0-80.0) % Band Neutrophils % % Lymphocytes % (Manual) (16.0-40.0) % Monocytes % (Manual) (0.0-15.0) % Nucleated RBC % /100WBC Absolute Seg Neuts Band Neutrophils # Lymphocytes # (Manual) Monocytes # (Manual) Nucleated RBCs # K/uL Lactate 1.1 (0.20-2.00) mmol/L Sodium (136-146) mmol/L Potassium (3.5-5.1) mmol/L Chloride (98-110) mmol/L Carbon Dioxide (21-31) mmol/L BUN (6.0-23.0) mg/dL Creatinine (0.6-1.5) mg/dL Est Cr Clr Drug Dosing mL/min Estimated GFR (MDRD) ml/min Glucose (60-110) mg/dL POC Glucose 224 H (60-110) mg/dL Hemoglobin A1c (0.0-6.0) % Calcium (8.8-10.8) mg/dL Ketones SMALL H (NEG) Med Orders - Current: Current Medications Piperacillin Sod/Tazobactam (Sod 3.375 gm/ Sodium Chloride) 50 mls @ 100 mls/ hr IV Q6H [facility] Last Admin: 02/28/17 09:14 Dose: 100 mls/hr Vancomycin HCl 1 gm/Vancomycin HCl 250 mg/ Sodium Chloride 500 mls @ 333.333 mls/hr IV Q8H [facility] Last Admin: 02/28/17 05:26 Dose: 333.333 mls/hr Sodium Chloride (Normal Saline) 1,000 mls @ 200 mls/hr IV ASDIRECTED [facility] Last Admin: 02/28/17 12:10 Dose: 200 mls/hr Insulin Human Regular 100 unit (/ Sodium Chloride) 100 mls @ 4 mls/hr IV TITRATE [facility]; 4 UNIT/HR PRN Reason: Protocol Last Admin: 02/28/17 12:04 Dose: 3 unit/hr, 3 mls/hr Insulin Aspart (Novolog) 0 unit SUBCUT Q6H [facility] PRN Reason: Protocol Last Admin: 02/28/17 09:19 Dose: 4 units Morphine Sulfate (Morphine) 2 mg IVPUSH Q2H PRN PRN Reason: Pain (severe 7-10) Ondansetron HCl (Zofran) 4 mg IVPUSH Q4H PRN PRN Reason: Nausea Oxycodone HCl (Oxycodone) 5 mg PO Q4H PRN PRN Reason: Pain (moderate 4-6) Vancomycin HCl (Pharmacy To Dose - Vancomycin) 1 dose .XX ASDIRECTED [facility] Discontinued Medications Sodium Chloride (Normal Saline) 1,000 mls @ 999 mls/hr IV STAT ONE Stop: 02/27/17 16:56 Last Admin: 02/27/17 16:29 Dose: 999 mls/hr Ceftriaxone Sodium/Dextrose 2 (gm/ Premix) 50 mls @ 100 mls/hr IV ONETIME ONE Stop: 02/27/17 16:45 Last Admin: 02/27/17 16:57 Dose: 100 mls/hr Metronidazole 500 mg/ Premix 100 mls @ 100 mls/hr IV ONETIME ONE Stop: 02/27/17 18:46 Last Admin: 02/27/17 18:18 Dose: 100 mls/hr Sodium Chloride (Normal Saline) 1,000 mls @ 999 mls/hr IV .Bolus ONE Stop: 02/27/17 18:52 Last Admin: 02/27/17 18:18 Dose: 999 mls/hr Sodium Chloride (Normal Saline) 1,000 mls @ 150 mls/hr IV ASDIRECTED [facility] Last Admin: 02/28/17 11:05 Dose: 150 mls/hr Vancomycin HCl 1.25 gm/ Sodium (Chloride) 500 mls @ 333.333 mls/hr IV Q8H [facility] Last Admin: 02/27/17 23:02 Dose: Not Given Sodium Chloride (Normal Saline) 1,000 mls @ 999 mls/hr IV .BOLUS ONE Stop: 02/28/17 10:04 Last Admin: 02/28/17 09:13 Dose: 999 mls/hr Iopamidol (Isovue Multipack-370 (76%)) 75 ml IVPUSH ONETIME STA Stop: 02/28/17 11:24 Last Admin: 02/28/17 11:23 Dose: 75 ml Ketorolac Tromethamine (Toradol) 30 mg IVPUSH ONETIME ONE Stop: 02/27/17 15:57 Last Admin: 02/27/17 16:29 Dose: 30 mg Morphine Sulfate (Morphine) 2 mg IVPUSH Q3H PRN PRN Reason: Pain (severe 7-10) Last Admin: 02/28/17 08:59 Dose: 2 mg Ondansetron HCl (Zofran) 4 mg IVPUSH ONETIME ONE Stop: 02/27/17 15:57 Last Admin: 02/27/17 16:30 Dose: 4 mg - Exam General: Reports: alert, oriented, cooperative HEENT: Reports: Other (unable to open mouth fully to visualize full posterior pharynx. denies feelings of SOB or throat closing.) Neck: Reports: lymphadenopathy (L cervical and submandibular), other (no stridor ) Lungs: Reports: Clear to auscultation, Normal respiratory effort Cardiovascular: Reports: Regular Rate, Regular Rhythm Abdomen: Reports: bowel sounds present, soft, no tenderness, no distension Extremities: Reports: no edema, normal pulses Skin: Reports: warm, dry, intact Psy/Mental Status: Reports: alert, normal affect, normal mood *Q Meaningful Use (DIS) - VTE *Q VTE Criteria *Q: - Stroke *Q Stroke Criteria *Q: - AMI *Q AMI Criteria *Q:
[2017-02-28 13:45] LABS: CHLORIDE,CL 113 mmol/L (98-110); SODIUM,NA 140 mmol/L (136-146)
[2017-02-28 14:25] VITALS: BP 132/79
== END 2017-02-28 14:52 | DRG 720 ==
LOC: MW.ED 15:51 → MW.MS 19:31
PROVIDERS: ADMIT Internal Medicine; ATTEND Internal Medicine
DX: A41.9 Sepsis, unspecified organism (principal); K04.7 Periapical abscess without sinus; F17.210 Nicotine dependence, cigarettes, uncomplicated; E11.65 Type 2 diabetes mellitus with hyperglycemia
CPT/HCPCS: 36415; 36600; 70491; 70491-26; 80048; 80053; 82009; 82803; 82962; 83036; 83605; 83735; 84100; 85025; 87040; 96361; 96365; 96375; 99283; 99285-25; J0696; J1815-GY ×2; J1885; J2270; J2405; J2543; J3370; J7030; J7040; J7050; Q9967

== ENCOUNTER 2017-04-04 14:30 | Emergency (ER) | payer BC, OTHER ==
--- NOTE | 2017-04-04 14:45 | EDM.PDOC ---
ED HPI GENERAL MEDICAL PROBLEM - General Chief Complaint: General Stated Complaint: NEEDS A RX Time Seen by Provider: 04/04/17 14:41 Source of Information: Reports: Patient History Limitations: Reports: No Limitations - History of Present Illness INITIAL COMMENTS - FREE TEXT/NARRATIVE: HISTORY AND PHYSICAL: []Patient presenting for medication refill of diabetic supply History of Present Illness: [] 36-year-old male who is insulin-dependent diabetic has almost run out of his needle supply Recent hospitalization where he was life flighted to [place] he does have a feeding tube in place which is scheduled to be removed April. Review of Systems: As per history of present illness and below otherwise all systems reviewed and negative. Past medical history: As per history of present illness and as reviewed below otherwise noncontributory. Surgical history: As per history of present illness and as reviewed below otherwise noncontributory. Social history: No reported history of drug or alcohol abuse. Family history: As per history of present illness and as reviewed below otherwise noncontributory. Physical exam: Alert and oriented gentleman answering questions appropriately HEENT: Atraumatic, normocehpalic, pupils reactive, negative for conjunctival pallor or scleral icterus, mucous membranes moist, throat clear, neck supple, nontender, trachea midline. Lungs: Clear to auscultation, breath sounds equal bilaterally, chest non tender. Heart: S1S2, regular, negative for clicks, rubs, or JVD. Abdomen: Soft, nondistended, nontender. Negative for masses or hepatossplenmegaly. Negative for costovertebral tenderness. Pelvis: Stable nontender. Genitourinary: Deferred. Rectal: Deferred Extremities: Atraumatic, negative for cords or calf pain. Neurovascular unremarkable. Neuro: Awake, alert, oriented. Cranial nerves II through XII unremarkable. Cerebellum unremarkable. Motor and sensory unremarkable throughout. Exam nonfocal. Diagnostics: [] Therapeutics: [] Impression: [Medication refill] Plan: []Called to [facility] for refill of his Gavin fine plus 32G Disposable needles 32X4 mm have ordered one box to be issued Follow-up with his physician at [facility] Definitive disposition and diagnosis as appropriate pending reevaluation and review of above. - Related Data Allergies Allergy/AdvReac Type Severity Reaction Status Date / Time No Known Allergies Allergy Verified 04/04/17 14:39 Home Meds: Home Meds Insulin Regular, Human [NovoLIN R] 100 unit IV TITRATE vial 02/28/17 [Rx] Morphine 2 mg IVPUSH Q2H PRN #0 syringe 02/28/17 [Rx] Sodium Chloride 0.9% [Normal Saline] 200 ml IV ASDIRECTED #0 bag 02/28/17 [Rx] Vancomycin 1 gm IV Q8H sdv 02/28/17 [Rx] Vancomycin 250 mg IV Q8H sdv 02/28/17 [Rx] Vancomycin Pharmacy to Dose [Pharmacy to Dose - Vancomycin] 1 dose .XX ASDIRECTED each 02/28/17 [Rx] Past Medical History - Past Health History Medical/Surgical History: Denies Medical/Surgical History HEENT History: Reports: Retinal Detachment Gastrointestinal History: Reports: Other (See Below) Other Gastrointestinal History: Ulcer - Infectious Disease History Infectious Disease History: Reports: Chicken Pox - Past Surgical History HEENT Surgical History: Reports: Detached Retina, Oral Surgery Other Musculoskeletal Surgeries/Procedures:: Wrist surgery Social & Family History - Family History Family Medical History: Noncontributory - Tobacco Use Smoking Status *Q: Current Every Day Smoker Years of Tobacco use: 20 Packs/Tins Daily: 0.5 Used Tobacco, but Quit: Yes Month Tobacco Last Used: 02/2017 Second Hand Smoke Exposure: Yes - Caffeine Use Caffeine Use: Reports: Coffee, Energy Drinks, Soda, Tea Caffeine Use Comment: 2-3 - Alcohol Use Days Per Week of Alcohol Use: 1 Number of Drinks Per Day: 2 Total Drinks Per Week: 2 - Recreational Drug Use Recreational Drug Use: Yes Drug Use in Last 12 Months: No Recreational Drug Type: Reports: Marijuana/Hashish ED ROS GENERAL - Review of Systems Review Of Systems: ROS reveals no pertinent complaints other than HPI. ED EXAM, GENERAL - Physical Exam Exam: See Below (see dictation) Course - Vital Signs Last Recorded V/S: Last Vital Signs Temp 36.5 C 04/04/17 14:40 Pulse 109 H 04/04/17 14:40 Resp 16 04/04/17 14:40 BP 119/75 04/04/17 14:40 Pulse Ox 99 04/04/17 14:40 Departure - Departure Time of Disposition: 14:44 Disposition: Home, Self-Care 01 Condition: Good Clinical Impression: Medication refill - Discharge Information Referrals: Chas Jerome MD [Primary Care Provider] - Forms: ED Department Discharge Additional Instructions: The following information is given to patients seen in the emergency department who are being discharged to home. This information is to outline your options for follow-up care. We provide all patients seen in our emergency department with a follow-up referral. The need for follow-up, as well as the timing and circumstances, are variable depending upon the specifics of your emergency department visit. If you don't have a primary care physician on staff, we will provide you with a referral. We always advise you to contact your personal physician following an emergency department visit to inform them of the circumstance of the visit and for follow-up with them and/or the need for any referrals to a consulting specialist. The emergency department will also refer you to a specialist when appropriate. This referral assures that you have the opportunity for followup care with a specialist. All of these measure are taken in an effort to provide you with optimal care, which includes your followup. Under all circumstances we always encourage you to contact your private physician who remains a resource for coordinating your care. When calling for followup care, please make the office aware that this follow-up is from your recent emergency room visit. If for any reason you are refused follow-up, please contact the [facility] emergency department at and asked to speak to the emergency department charge nurse. Description has been called to [facility]
== END 2017-04-04 15:00 | disposition home or self-care (01) ==
LOC: MW.ED 14:30
CPT/HCPCS: 99281; 99282

== ENCOUNTER 2018-03-16 07:59 | Emergency (ER) | payer BC ==
[2018-03-16] MEDS ORDERED: Sodium Chloride 0.9% 1,000 ML IV ONE (08:16)
--- NOTE | 2018-03-16 08:30 | EDM.PDOC ---
ED HPI GENERAL MEDICAL PROBLEM - General Chief Complaint: Upper Extremity Injury/Pain Stated Complaint: RT ISSUES Time Seen by Provider: 03/16/18 08:09 - History of Present Illness INITIAL COMMENTS - FREE TEXT/NARRATIVE: HISTORY AND PHYSICAL: History of present illness: Patient 37-year-old white male presents with concern right hand redness pain and swelling he denies any trauma denies fever chills nausea vomiting or other concern. He states he's had this 1 day Review of systems: As per history of present illness and below otherwise all systems reviewed and negative. Past medical history: As per history of present illness and as reviewed below otherwise noncontributory. Surgical history: As per history of present illness and as reviewed below otherwise noncontributory. Social history: No reported history of drug or alcohol abuse. Family history: As per history of present illness and as reviewed below otherwise noncontributory. Physical exam: HEENT: Atraumatic, normocephalic, pupils reactive, negative for conjunctival pallor or scleral icterus, mucous membranes moist, throat clear, neck supple, nontender, trachea midline. Lungs: Clear to auscultation, breath sounds equal bilaterally, chest nontender. Heart: S1S2, regular, negative for clicks, rubs, or JVD. Abdomen: Soft, nondistended, nontender. Negative for masses or hepatosplenomegaly. Negative for costovertebral tenderness. Pelvis: Stable nontender. Genitourinary: Deferred. Rectal: Deferred. Extremities: Patient has swelling with some erythema on the dorsal aspect in the region of the fourth distal metacarpal with proximal extension he has tenderness and pain with movement of his digits particularly his fourth digit. There is no fluctuance there is no induration neurovascular exam is unremarkable Neuro: Awake, alert, oriented. Cranial nerves II through XII unremarkable. Cerebellum unremarkable. Motor and sensory unremarkable throughout. Exam nonfocal. Diagnostics: X-ray right hand CBC CMP blood culture 2 Therapeutics: Saline 1 L bolus Impression: # 1 cellulitis right hand Definitive disposition and diagnosis as appropriate pending reevaluation and review of above. Right Hand Pain Score (Numeric/FACES): 7 - Related Data Allergies Allergy/AdvReac Type Severity Reaction Status Date / Time No Known Allergies Allergy Verified 03/16/18 08:13 Home Meds: Home Meds . [No Known Home Meds] 03/16/18 [History] Past Medical History - Past Health History Medical/Surgical History: Denies Medical/Surgical History HEENT History: Reports: Retinal Detachment Cardiovascular History: Reports: Hypertension Gastrointestinal History: Reports: Other (See Below) Other Gastrointestinal History: Ulcer Endocrine/Metabolic History: Reports: Diabetes, Type I - Infectious Disease History Infectious Disease History: Reports: Chicken Pox - Past Surgical History HEENT Surgical History: Reports: Detached Retina, Oral Surgery Other Musculoskeletal Surgeries/Procedures:: Wrist surgery Social & Family History - Family History Family Medical History: Noncontributory - Caffeine Use Caffeine Use: Reports: Coffee, Energy Drinks, Soda, Tea Caffeine Use Comment: 2-3 Review of Systems - Review of Systems Review Of Systems: ROS reveals no pertinent complaints other than HPI. ED EXAM, GENERAL - Physical Exam Exam: See Below (See dictation) Course - Vital Signs Last Recorded V/S: Last Vital Signs Temp 36.6 C 03/16/18 08:15 Pulse 95 03/16/18 08:15 Resp 14 03/16/18 08:15 BP 121/81 03/16/18 08:15 Pulse Ox 98 03/16/18 08:15 - Orders/Labs/Meds Orders: Active Orders 24 hr Category Date Time Status COMPREHENSIVE METABOLIC PN,CMP [CHEM] Stat Lab 03/16/18 08:28 Received CULTURE BLOOD [BC] Stat Lab 03/16/18 08:28 Received CULTURE BLOOD [BC] Stat Lab 03/16/18 08:39 Received cefTRIAXone [Rocephin] 1 gm Med 03/16/18 09:16 Active Sodium Chloride 0.9% [Normal Saline] 50 ml IV ONETIME Blood Culture x2 Reflex Set [OM.PC] Stat Oth 03/16/18 08:16 Ordered Medication Orders Ceftriaxone Sodium 1 gm/ (Sodium Chloride) 50 mls @ 100 mls/hr IV ONETIME ONE Stop: 03/16/18 09:45 Labs: Laboratory Tests 03/16/18 Range/Units 08:28 WBC 9.80 (4.0-11.0) K/uL RBC 4.65 (4.50-5.90) M/uL Hgb 15.2 (13.0-17.0) g/dL Hct 43.9 (38.0-50.0) % MCV 94.4 (80.0-98.0) fL MCH 32.7 H (27.0-32.0) pg MCHC 34.6 (31.0-37.0) g/dL RDW Std Deviation 46.9 (28.0-62.0) fl RDW Coeff of Oliverio 14 (11.0-15.0) % Plt Count 218 (150-400) K/uL MPV 10.20 (7.40-12.00) fL Neut % (Auto) 67.9 (48.0-80.0) % Lymph % (Auto) 20.3 (16.0-40.0) % Sutter % (Auto) 10.1 (0.0-15.0) % Eos % (Auto) 1.4 (0.0-7.0) % Baso % (Auto) 0.3 (0.0-1.5) % Neut # (Auto) 6.7 H (1.4-5.7) K/uL Lymph # (Auto) 2.0 (0.6-2.4) K/uL Sutter # (Auto) 1.0 H (0.0-0.8) K/uL Eos # (Auto) 0.1 (0.0-0.7) K/uL Baso # (Auto) 0.0 (0.0-0.1) K/uL Nucleated RBC % 0.0 /100WBC Nucleated RBCs # 0 K/uL Meds: Medications Generic Name Dose Route Start Last Admin Trade Name Freq PRN Reason Stop Dose Admin Ceftriaxone Sodium 1 gm/ 50 mls @ 100 mls/hr 03/16/18 09:16 Sodium Chloride IV 03/16/18 09:45 ONETIME ONE Discontinued Medications Generic Name Dose Route Start Last Admin Trade Name Freq PRN Reason Stop Dose Admin Sodium Chloride 1,000 mls @ 999 mls/hr 03/16/18 08:16 03/16/18 08:35 Normal Saline IV 03/16/18 09:16 999 mls/hr STAT ONE Administration Departure - Departure Time of Disposition: 09:27 Disposition: Home, Self-Care 01 Condition: Good Clinical Impression: Cellulitis - Discharge Information Referrals: Chas Jerome MD [Primary Care Provider] - Forms: ED Department Discharge Additional Instructions: The following information is given to patients seen in the emergency department who are being discharged to home. This information is to outline your options for follow-up care. We provide all patients seen in our emergency department with a follow-up referral. The need for follow-up, as well as the timing and circumstances, are variable depending upon the specifics of your emergency department visit. If you don't have a primary care physician on staff, we will provide you with a referral. We always advise you to contact your personal physician following an emergency department visit to inform them of the circumstance of the visit and for follow-up with them and/or the need for any referrals to a consulting specialist. The emergency department will also refer you to a specialist when appropriate. This referral assures that you have the opportunity for followup care with a specialist. All of these measure are taken in an effort to provide you with optimal care, which includes your followup. Under all circumstances we always encourage you to contact your private physician who remains a resource for coordinating your care. When calling for followup care, please make the office aware that this follow-up is from your recent emergency room visit. If for any reason you are refused follow-up, please contact the [facility] emergency department at and asked to speak to the emergency department charge nurse. [facility] specialty clinic-Plastics [address] [place] [id number] Clindamycin and Bactrim as prescribed follow-up hand surgery above call office to schedule appointment return as needed as discussed sling as directed - My Orders Last 24 Hours: My Active Orders 03/16/18 08:16 Blood Culture x2 Reflex Set [OM.PC] Stat 03/16/18 08:28 COMPREHENSIVE METABOLIC PN,CMP [CHEM] Stat CULTURE BLOOD [BC] Stat 03/16/18 08:39 CULTURE BLOOD [BC] Stat 03/16/18 09:16 cefTRIAXone [Rocephin] 1 gm Sodium Chloride 0.9% [Normal Saline] 50 ml IV ONETIME - Assessment/Plan Last 24 Hours: My Active Orders 03/16/18 08:16 Blood Culture x2 Reflex Set [OM.PC] Stat 03/16/18 08:28 COMPREHENSIVE METABOLIC PN,CMP [CHEM] Stat CULTURE BLOOD [BC] Stat 03/16/18 08:39 CULTURE BLOOD [BC] Stat 03/16/18 09:16 cefTRIAXone [Rocephin] 1 gm Sodium Chloride 0.9% [Normal Saline] 50 ml IV ONETIME
--- NOTE | 2018-03-16 09:06 | CR ---
EXAMINATION: Right hand HISTORY: Pain COMPARISON: None TECHNIQUE: 2 views FINDINGS/IMPRESSION: There is no acute osseous abnormality, dislocation, or fracture. Bone mineraliza tion and joint spaces appear normal. No soft tissue swelling or foreign body.
[2018-03-16 09:14] LABS: CHLORIDE,CL 104 mmol/L (98-107); SODIUM,NA 138 mmol/L (136-148)
[2018-03-16] MEDS ORDERED: cefTRIAXone 1 GM in Sodium Chloride 0.9% 50 ML IV ONE (09:16)
[2018-03-16] MEDS ORDERED: cefTRIAXone 1,000 MG VIAL IVPUSH ONE (09:22)
[2018-03-16 09:49] VITALS: BP 130/82
== END 2018-03-16 09:50 | disposition home or self-care (01) ==
LOC: MW.ED 07:59
DX: L03.113 Cellulitis of right upper limb (principal)
CPT/HCPCS: 36415; 73120; 80053; 85025; 87040; 96360; 96372; 99283; J0696; J7040